=== PATIENT | male | born 1970 | race Caucasian/White ===

== ENCOUNTER 2020-03-05 09:18 | Emergency (ER) | payer BC, OTHER ==
[~2020-03-05] VITALS: Ht 165.1 cm; Wt 73.5 kg
[~2020-03-05 09:18] MED LIST: MARIJUANA; MOTRIN; OXYC-130 PO; SOM350 PO
[2020-03-05 09:42] VITALS: BP_SYST 128
--- NOTE | 2020-03-05 09:45 | NUR ---
sent to waiting room
[2020-03-05] MEDS ORDERED: KETOROLAC TROMETHAMINE 30 MG VIAL IVP ONE (13:30)
== END 2020-03-05 19:24 | disposition left against medical advice (07) ==
LOC: SED 09:18
DX: R10.9 Unspecified abdominal pain (principal)
CPT/HCPCS: 74018; 81002; 99283